=== PATIENT | male | born 1990 | race Caucasian/White ===

== ENCOUNTER 2020-07-23 22:46 | Emergency (ER) | payer SELFPAY ==
[~2020-07-23] VITALS: Ht 182.9 cm; Wt 68.0 kg
[2020-07-24 00:18] LABS: BASOPHILS % 1.1 % (0.0-2.0); EOSINOPHILS % 3.7 % (0.0-5.0); HEMATOCRIT. 42.9 % (42.0-52.0); HEMOGLOBIN. 14.6 g/dL (14.0-18.0); MEAN CORPUSCULAR HEMOGLOBIN 30.2 pg (28.0-32.0); MEAN PLATELET VOLUME 8.6 fl (7.4-10.4); MONOCYTES % 5.9 % (2.0-8.0); NEUTROPHILS % 62.3 % (40.0-76.0); PLATELET 316 x1000/uL (130-400); RED BLOOD CELL COUNT 4.82 mill/uL (4.7-6.1); RED CELL DISTRIBUTION WIDTH 14.6 % (11.6-14.6)
[2020-07-24 00:25] LABS: CHLORIDE 104 mEq/L (98-107)
[2020-07-24] MEDS ORDERED: ACETAMINOPHEN 325MG TABLET PO ONE (00:45)
[2020-07-24 01:25] LABS: CLARITY URINE CLEAR (CLEAR); COLOR URINE YELLOW (YELLOW); KETONES URINE NEGATIVE (NEGATIVE); LEUKOCYTE ESTERASE URINE NEGATIVE (NEGATIVE); NITRITE URINE NEGATIVE (NEGATIVE); OCCULT BLOOD URINE TRACE (NEGATIVE); PH URINE 6.5 (4.5-8.0); PROTEIN URINE 3+ (NEGATIVE); SPECIFIC GRAVITY URINE 1.025 (1.005-1.030)
[2020-07-24 02:45] VITALS: BP 19/65
== END 2020-07-24 03:00 | disposition home or self-care (01) ==
LOC: ER 22:46
DX: R60.0 Localized edema (principal); R80.9 Proteinuria, unspecified; F17.210 Nicotine dependence, cigarettes, uncomplicated
CPT/HCPCS: 36415; 71045; 80053; 81003; 83880; 84484; 85025; 93005; 99285

== ENCOUNTER 2020-11-13 16:09 | Emergency (ER) | payer MEDICAID ==
[~2020-11-13] VITALS: Ht 182.9 cm; Wt 70.0 kg
[2020-11-13 16:26] VITALS: BP 134/87
[2020-11-13 19:46] LABS: CHLORIDE 105 mEq/L (98-107)
[2020-11-13] MEDS ORDERED: IOHEXOL-300 100 ML BOTTLE ONE (21:40)
== END 2020-11-13 22:25 | disposition home or self-care (01) ==
LOC: ER 16:09
DX: H10.022 Other mucopurulent conjunctivitis, left eye (principal); R03.0 Elevated blood-pressure reading, without diagnosis of hypertension
CPT/HCPCS: 36415; 70481; 80048; 99285; Q9967